=== PATIENT | female | born 1980 | race Caucasian/White ===

== ENCOUNTER 2017-06-16 21:51 | Emergency (ER) | payer OTHER ==
[~2017-06-16] VITALS: Ht 172.7 cm; Wt 90.7 kg
[~2017-06-16 21:51] MED LIST: METR-1 PO; Z.0.BCPILL PO
[2017-06-16 21:53] VITALS: BP_SYST 123; BP_SYST 13; BP_DIAS 77; PULSE 97; RESP 18; TEMP 97.7; O2SAT 99
[2017-06-16] MEDS ORDERED: SPRI28TA PO (22:02)
--- NOTE | 2017-06-16 22:26 | PD ---
HPI Chief Complaint: Injury Time Seen by Provider: 22:11 Travel History International Travel<30 days: No Contact w/Intl Traveler<30days: No Traveled to known affect area: No History of Present Illness HPI This patient complains of left ankle injury. She stumbled in a parking lot and sprained her left ankle. She has swelling there. Duration 2 hours. She is walking on it but has some pain. PFSH Past Medical History Medical History: Denies Significant Hx Diminished Hearing: No Immunizations Current: No Tetanus Vaccination: > 5 Years Influenza Vaccination: No ?: Not LMP: 06/06/17 : 1 : 1 Past Surgical History Other Surgery: Yes (WISDOM TEETH) Social History Alcohol Use: Yes (soc) Tobacco Use: Yes (QUIT 2016) Substance Use: No Allergies-Medications (Allergen,Severity, Reaction): Coded Allergies: No Known Allergies (Unverified Adverse Reaction, Unknown, 06/16/17) Reported Meds & Prescriptions Reported Meds & Active Scripts Active Reported Sprintec 28 (Norgestimate-Ethinyl Estradiol) 0.25-35 mg-Mcg Tab 1 Tab PO DAILY Review of Systems General / Constitutional: No: Fever HENT: No: Headaches Cardiovascular: No: Chest Pain or Discomfort Physical Exam Narrative SKIN: Focused skin assessment reveals no rash or ulcers. Skin is warm and dry. Palpation shows no induration or nodules. Psych: Normal mood and affect. Normal insight and judgment. Left ankle:. There is lateral and met medial malleolus swelling. She is tender at about the medial malleolus but not the lateral. Neurovascularly intact Data Data Last Documented VS Vital Signs Date Time Temp Pulse Resp B/P (MAP) Pulse Ox O2 Delivery O2 Flow Rate FiO2 06/16/17 21:53 97.7 97 18 123/77 (92) 99 Orders Orders Ankle, Complete ([id number]) (06/16/17 ) [facility] Medical Decision Making Medical Screen Exam Complete: Yes Emergency Medical Condition: Yes Medical Record Reviewed: Yes Differential Diagnosis Ankle sprain, ankle fracture, dislocation Narrative Course I have reviewed the patient's electronic medical record. I reviewed her left ankle x-rays which show soft tissue swelling without fracture She'll ice and elevate and limit weightbearing Diagnosis Primary Impression: Moderate left ankle sprain Qualified Codes: S93.402A - Sprain of unspecified ligament of left ankle, initial encounter Additional Instructions: The patient was advised to follow up with their physician and return if they worsen. Ice and elevate left ankle Med/Other Pt SpecificInfo: Other Disposition: 01 DISCHARGE HOME Condition: Stable Jero Lombardi MD Jun 16, 2017 22:26
--- NOTE | 2017-06-16 22:39 | RADRPT ---
EXAM DATE/TIME: 06/16/2017 22:29 [place] COMPARISON: No previous studies available for comparison. INDICATIONS : Left medial ankle pain post rolling extremity. MEDICAL HISTORY : None. SURGICAL HISTORY : None. ENCOUNTER: Initial ACUITY: 1 day PAIN SCORE: 7/10 LOCATION: Left medial ankle FINDINGS: Three view exam was performed of the left ankle. The bony structures are in normal alignment. No ev idence of fracture, dislocation. There is some soft tissue swelling around the ankle. Small heel spur . The ankle mortise is intact. No radiopaque foreign bodies are seen. Bony mineralization is theo l. CONCLUSION: 1. Soft tissue swelling. 2. No acute fracture or joint dislocation. 3. Tiny heel spur. Ralph Monge MD on June 16, 2017 at 22:36 Board Certified Radiologist. This report was verified electronically.
[2017-06-16 23:05] VITALS: BP 130/76; PULSE 84; RESP 16; O2SAT 100
== END 2017-06-16 23:10 | disposition home or self-care (01) ==
LOC: PHED 21:51
DX: S93.402A Sprain of unspecified ligament of left ankle, initial encounter (principal); W18.40XA Slipping, tripping and stumbling without falling, unspecified, initial encounter; Y92.481 Parking lot as the place of occurrence of the external cause
CPT/HCPCS: 73610; 99283